=== PATIENT | male | born 1980 | race Caucasian/White ===

== ENCOUNTER → 2021-05-19 | Outpatient (CLI) | payer OTHER | LOC: LAB 15:40 | DX: I50.9 Heart failure, unspecified (principal) | CPT/HCPCS: 36415; 83880 ==

== ENCOUNTER → 2021-07-15 | Outpatient (CLI) | payer OTHER | LOC: RAD 13:58 | DX: R06.09 Other forms of dyspnea (principal) | CPT/HCPCS: 71046 ==

== ENCOUNTER 2022-04-12 07:58 | Emergency (ER) | payer OTHER ==
[2022-04-12 09:07] LABS: HEMOGLOBIN 16.3 gm/dl (14.0-17.5); RED BLOOD COUNT 6.16 M/UL (4.20-5.50); WHITE BLOOD COUNT 7.4 K/UL (4.5-11.0)
[2022-04-12 09:11] LABS: BUN/CREATININE RATIO 13 (0-10)
[2022-04-12] MEDS ORDERED: LOVENOX100 MG/1 M SQ (11:06)
== END 2022-04-12 11:19 | disposition home or self-care (01) ==
LOC: ER1 07:58
PROVIDERS: Physician Assistant
DX: E80.6 Other disorders of bilirubin metabolism (principal); I35.0 Nonrheumatic aortic (valve) stenosis; I48.91 Unspecified atrial fibrillation
CPT/HCPCS: 80053; 81001; 83690; 85025; 85610; 86140; 93005; 96372; 96374; 96375; 99284; J1650; J1885; J2270; Q9967

== ENCOUNTER → 2022-07-30 | Outpatient (CLI) | payer BC, OTHER ==
[~2022-07-30] MED LIST: LOVENOX100 MG/1 M SQ
== END ==
LOC: EROP 18:44
DX: R10.31 Right lower quadrant pain (principal)
CPT/HCPCS: 74150